=== PATIENT | female | born 1965 | race Hispanic/Latino ===

== ENCOUNTER 2018-01-15 16:45 | Emergency (ER) | payer BC ==
[2018-01-15 16:53] VITALS: BP 220/103
[2018-01-15] MEDS ORDERED: MORPHINE IM ONE (17:53)
[2018-01-15] MEDS ORDERED: SOLU-Medrol IM ONE (17:53)
--- NOTE | 2018-01-15 18:33 | Emergency Department Report ---
ED Upper Extremity Inj HPI - General Chief Complaint: Extremity Injury, Upper Stated Complaint: HAND PAIN Time Seen by Provider: 01/15/18 17:22 Source: patient Mode of arrival: Ambulatory Limitations: No Limitations - History of Present Illness Initial Comments: 52-year-old female with complaint of bilateral hand and forearm pain 1 week patient reports associated burning and numbness in bilateral hands. Reports mild swelling. She denies neck pain. Patient denies injury. States has had this problem in the past and was worked up for dermatomyositis. However workup was incomplete. Patient never got definitive diagnosis obtained. MD Complaint: Injury to:: left, right, forearm, wrist, hand -: week(s) (1) Improves With: none Worsens With: none Associated Symptoms: numbness. denies: neck pain Treatments Prior to Arrival: NSAIDS - Related Data Previous Rx's Medication Instructions Recorded Last Taken Type methylPREDNISolone [Medrol Dose 4 mg PO QDAY 5 Days #21 pack 01/15/18 Unknown Rx Ishan] traMADol [Ultram] 50 mg PO Q6HR PRN #20 tablet 01/15/18 Unknown Rx Allergies Allergy/AdvReac Type Severity Reaction Status Date / Time acetaminophen [From Ofirmev] Allergy Anaphylaxis Verified 01/15/18 16:55 etodolac Allergy Anaphylaxis Verified 01/15/18 16:55 hydromorphone [From Dilaudid] Allergy Anaphylaxis Verified 01/15/18 16:55 levofloxacin [From Levaquin] Allergy Anaphylaxis Verified 01/15/18 16:55 ED Review of Systems ROS: Stated complaint: HAND PAIN Other details as noted in HPI Comment: All other systems reviewed and negative Constitutional: denies: fever Musculoskeletal: arthralgia, myalgia. denies: other (neck pain) Neurological: paresthesias ED Past Medical Hx - Past Medical History Previous Medical History?: Yes Hx Hypertension: Yes Hx Diabetes: Yes - Surgical History Past Surgical History?: Yes Additional Surgical History: Aortic Aneursym repair, hysterectomy - Social History Smoking Status: Never Smoker - Medications Home Medications: Home Medications Medication Instructions Recorded Confirmed Last Taken Type methylPREDNISolone [Medrol Dose 4 mg PO QDAY 5 Days #21 pack 01/15/18 Unknown Rx Ishan] traMADol [Ultram] 50 mg PO Q6HR PRN #20 tablet 01/15/18 Unknown Rx ED Physical Exam - General Limitations: No Limitations General appearance: alert, other (appears uncomfortable, in obvious pain) - Head Head exam: Present: atraumatic, normocephalic - Eye Eye exam: Present: normal appearance - Neck Neck exam: Present: normal inspection, full ROM. Absent: tenderness - Respiratory Respiratory exam: Present: normal lung sounds bilaterally. Absent: respiratory distress - Cardiovascular Cardiovascular Exam: Present: regular rate, normal rhythm - GI/Abdominal GI/Abdominal exam: Present: soft. Absent: tenderness - Extremities Exam Extremities exam: Present: normal capillary refill, other (no obvious swelling to hands present; cap refill nml; hands are warm; strength in hands 5/5; hands, wrists and forearms tender to palpation bilaterally; ROM nml ) - Neurological Exam Neurological exam: Present: alert, oriented X3 - Psychiatric Psychiatric exam: Present: normal affect, normal mood - Skin Skin exam: Present: warm, dry, intact, normal color ED Course Vital Signs 01/15/18 16:49 Temperature 99.2 F Pulse Rate 72 Respiratory 16 Rate Blood Pressure 220/103 O2 Sat by Pulse 97 Oximetry ED Medical Decision Making - Medical Decision Making 52-year-old female with bilateral hand and wrist and forearm pain. No obvious changes to hands on exam. Tenderness present in bilateral hands or his forearms. Possible arthritis or neuropathy. Will treat with steroids and pain meds, will refer to [facility] [employer] [facility] - Differential Diagnosis arthritis, neuropathy, myositis, vasculitis Critical care attestation.: If time is entered above; I have spent that time in minutes in the direct care of this critically ill patient, excluding procedure time. ED Disposition Clinical Impression: Arthralgia, Neuropathy Disposition: - TO HOME OR SELFCARE Is pt being admited?: No Condition: Stable Instructions: Paresthesia (ED), Arthralgia (ED) Prescriptions: methylPREDNISolone [Medrol Dose Ishan] 4 mg PO QDAY 5 Days #21 pack traMADol [Ultram] 50 mg PO Q6HR PRN #20 tablet PRN Reason: Pain Referrals: PRIMARY MD JC [Primary Care Provider] - 3-5 Days KAT PADILLA MD [Staff Physician] - 3-5 Days JOSAFAT FINK MD [Referring] - 3-5 Days LUIS ANGEL RUBY MD [Referring] - 3-5 Days OVIDIO MENDOZA MD [Referring] - 3-5 Days [facility] [Provider Group] - 3-5 Days Time of Disposition: 18:41
== END 2018-01-15 18:47 | disposition home or self-care (01) ==
LOC: ED 16:45
DX: G62.9 Polyneuropathy, unspecified (principal); I10 Essential (primary) hypertension; E11.9 Type 2 diabetes mellitus without complications
CPT/HCPCS: 96372; 99282; J2270; J2930

== ENCOUNTER 2018-02-05 11:17 | Inpatient (IN) | payer BC ==
[2018-02-05] MEDS ORDERED: ASPIRIN PO ONE (11:35)
[2018-02-05] MEDS ORDERED: DUONEB *Not for PRN Use IH ONE (11:52)
--- NOTE | 2018-02-05 11:57 | Emergency Department Report ---
HPI - General Chief Complaint: Arrhythmia/Palpitations Time Seen by Provider: 02/05/18 11:42 - HPI HPI: 52-year-old female, who is an ICU nurse here at [employer], presents to the emergency department with the complaint of a 5 day history of some shortness of breath, productive cough. Over the past hour or so she has also become slightly diaphoretic and began having some palpitations. She says that the cough is productive with some green sputum. She has a past medical history of diabetes, hypertension, thoracic aortic aneurysm repair, hysterectomy , cholecystectomy. She has tried some NyQuil for symptoms without much relief. She denies any tobacco or illicit drug use or abuse. No recent travel or sick contacts at home. Her primary care physician is a Dr. Raymond in [place]. She denies any chest pain but says that occasionally she will feel some tightness or pressure. ED Past Medical Hx - Past Medical History Previous Medical History?: Yes Hx Hypertension: Yes Hx Diabetes: Yes - Surgical History Additional Surgical History: Aortic Aneursym repair, hysterectomy - Social History Smoking Status: Never Smoker Substance Use Type: None - Medications Home Medications: Home Medications Medication Instructions Recorded Confirmed Last Taken Type Aspirin [Adult Aspirin] 81 mg PO DAILY 02/05/18 02/05/18 02/05/18 History Carvedilol [Coreg] 12.5 mg PO BID 02/05/18 02/05/18 02/05/18 History FLUoxetine HCL [PROzac] 40 mg PO QPM 02/05/18 02/05/18 02/04/18 History Furosemide [Lasix TAB] 40 mg PO QDAY 02/05/18 02/05/18 02/05/18 History Losartan Potassium [Cozaar] 25 mg PO BID 02/05/18 02/05/18 02/05/18 History Metformin HCl [Glucophage] 1,000 mg PO QPM 02/05/18 02/05/18 Unknown History Nitroglycerin 0.6 mg SL PRN PRN 02/05/18 02/05/18 Unknown History Pantoprazole Sodium 40 mg PO BID 02/05/18 02/05/18 02/05/18 History Potassium Chloride [K-Dur] 20 meq PO QDAY 02/05/18 02/05/18 02/05/18 History clonazePAM [Clonazepam] 0.5 mg PO BID PRN 02/05/18 02/05/18 Unknown History tiZANidine [Zanaflex] 4 mg PO TID PRN 02/05/18 02/05/18 Unknown History ED Review of Systems ROS: Stated complaint: SOB PALPITATIONS/COUGHING UP MUCOUS Other details as noted in HPI Comment: All other systems reviewed and negative Constitutional: diaphoresis. denies: fever Eyes: denies: eye pain, eye discharge, vision change ENT: denies: ear pain, throat pain Respiratory: cough, shortness of breath Cardiovascular: palpitations. denies: edema Gastrointestinal: denies: abdominal pain, vomiting Genitourinary: denies: urgency, dysuria, discharge Musculoskeletal: denies: back pain, joint swelling, arthralgia Skin: denies: rash, lesions Neurological: denies: headache, numbness Physical Exam - Physical Exam Vital Signs: Vital Signs 02/05/18 11:32 Temperature 99 F Pulse Rate 105 H Respiratory 20 Rate Blood Pressure 190/103 O2 Sat by Pulse 99 Oximetry Physical Exam: GENERAL: The patient is well-developed well-nourished. HENT: Normocephalic. Atraumatic. Patient has moist mucous membranes. EYES: Extraocular motions are intact. Pupils equal reactive to light bilaterally. NECK: Supple. Trachea is midline. CHEST/LUNGS: Clear to auscultation. There is no respiratory distress noted. HEART/CARDIOVASCULAR: Regular. There is mild tachycardia. There is no murmur. ABDOMEN: Abdomen is soft, nontender. Patient has normal bowel sounds. There is no abdominal distention. SKIN: Skin is warm and dry. NEURO: The patient is awake, alert, and oriented. The patient is cooperative. The patient has no focal neurologic deficits. The patient has normal speech. MUSCULOSKELETAL: There is no tenderness or deformity. There is no limitation range of motion. There is no evidence of acute injury. ED Course Vital Signs 02/05/18 11:32 Temperature 99 F Pulse Rate 105 H Respiratory 20 Rate Blood Pressure 190/103 O2 Sat by Pulse 99 Oximetry ED Medical Decision Making - Lab Data Result diagrams: 02/05/18 11:45 02/05/18 11:45 - EKG Data -: EKG Interpreted by Pr EKG shows normal: sinus rhythm, axis, intervals (prolonged QT and QTC intervals) , QRS complexes, ST-T waves (some flattening of the T waves and/or T wave inversions throughout the lateral and inferior leads) - EKG Data When compared to previous EKG there are: previous EKG unavailable Interpretation: other (sinus rhythm, normal axis, prolonged QT and QTC intervals , some flattening or inversion of T waves throughout most leads.) - Radiology Data Radiology results: report reviewed, image reviewed interpreted by me: Chest x-ray does not show any acute process. There are no pleural effusions, obvious pneumonia and there is no pneumothorax. EXAM: CT ANGIO CHEST HISTORY: SOB, elevated dimer TECHNIQUE: CT examination of the chest with IV contrast CT angiographic 2D and thick slab 3D image post-processing PRIORS: None. FINDINGS: Sternotomy cerclage wires are present. Normal cardiac size without pericardial effusion. Intact normal caliber thoracic aorta. No hilar mass or mediastinal adenopathy. The visualized pulmonary arteries are diffusely patent bilaterally. There is no filling defect to suggest PE. Nonspecific diffusely decreased density of liver parenchyma may reflect fatty infiltration. No focal lesion in the visualized portion of the liver. Degenerative change in the regional skeleton. No evidence of acute fracture. No pneumothorax, pleural effusion, or focal pulmonary consolidation. No evidence of lung mass or pulmonary nodule. IMPRESSION: Suggestion of hepatic steatosis No CT evidence of PE or definite acute cardiopulmonary disease Transcribed By: BAL Dictated By: MARCELA RANDLE MD Electronically Authenticated By: MARCELA RANDLE MD Signed Date/Time: 02/05/18 6539 - Medical Decision Making Patient presents with a five-day history of shortness of breath and cough any more recent history of palpitations and some chest discomfort. EKG did not show any ST elevation PA. Chest x-ray did not show any acute processes. Labs are mostly unremarkable except for a slightly elevated and equivocal d-dimer. CT angiography of the chest did not show any PE or dissection. Patient was given some pain medication but still continues to have some chest discomfort. She is not had a full cardiac workup in some time and has a few risk factors for coronary artery disease. She'll be admitted to the hospital for further evaluation and treatment and was accepted for admission by the hospitalist, Dr. Cortez. - Differential Diagnosis PA, PE, costochondritis, pneumonia, bronchitis Critical Care Time: No Critical care attestation.: If time is entered above; I have spent that time in minutes in the direct care of this critically ill patient, excluding procedure time. ED Disposition Clinical Impression: Acute chest pain, Palpitations HTN (hypertension) Qualifiers: Hypertension type: essential hypertension Qualified Code(s): I10 - Essential ( primary) hypertension Dyspnea Qualifiers: Dyspnea type: shortness of breath Qualified Code(s): R06.02 - Shortness of breath; R06.00 - Dyspnea, unspecified; R06.01 - Orthopnea Disposition: 09 OP ADMIT IP TO THIS HOSP Is pt being admited?: Yes Condition: Stable Time of Disposition: 19:47
[2018-02-05 12:08] LABS: Basophils # (Auto) 0.1 K/mm3 (0.0-0.1); Basophils % (Auto) 1.2 % (0.0-1.8); Eosinophils # (Auto) 0.1 K/mm3 (0.0-0.4); Eosinophils % (Auto) 1.8 % (0.0-4.3); Hematocrit 43.2 % (30.3-42.9); Hemoglobin 14.9 gm/dl (10.1-14.3); Lymphocytes % (Auto) 37.6 % (13.4-35.0); Mean Corpuscular HGB Conc 35 % (30-34); Mean Corpuscular Hemoglobin 31 pg (28-32); Mean Corpuscular Volume 91 fl (79-97); Monocytes # (Auto) 0.5 K/mm3 (0.0-0.8); Monocytes % (Auto) 5.6 % (0.0-7.3); Platelet Count 239 K/mm3 (140-440); Red Blood Count 4.77 M/mm3 (3.65-5.03); Red Cell Distribution Width 13.4 % (13.2-15.2)
--- NOTE | 2018-02-05 12:24 | XRay Report ---
AP CHEST: HISTORY: Shortness of breath Previous cardiac surgery changes are noted. AP view of the chest demonstrates a normal mediastinal and cardiac contour with clear lungs and normal bony and soft tissue structures. IMPRESSION: No acute cardiopulmonary process
[2018-02-05] MEDS ORDERED: MORPHINE IV ONE ×3 (12:26→19:17)
[2018-02-05] MEDS ORDERED: ZOFRAN ONE (12:39)
[2018-02-05 12:43] LABS: BUN/Creatinine Ratio 18; Blood Urea Nitrogen 16 mg/dL (7-17); Calcium 9.4 mg/dL (8.4-10.2); Hemolysis Index 12
[2018-02-05] MEDS ORDERED: ZOFRAN IV ONE (12:50)
[2018-02-05] MEDS ORDERED: NACL 0.9% 50 ML ONE (12:51)
--- NOTE | 2018-02-05 13:46 | Cat Scan Report ---
FINAL REPORT EXAM: CT ANGIO CHEST HISTORY: SOB, elevated dimer TECHNIQUE: CT examination of the chest with IV contrast CT angiographic 2D and thick slab 3D image post-processing PRIORS: None. FINDINGS: Sternotomy cerclage wires are present. Normal cardiac size without pericardial effusion. Intact normal caliber thoracic aorta. No hilar mass or mediastinal adenopathy. The visualized pulmonary arteries are diffusely patent bilaterally. There is no filling defect to suggest PE. Nonspecific diffusely decreased density of liver parenchyma may reflect fatty infiltration. No focal lesion in the visualized portion of the liver. Degenerative change in the regional skeleton. No evidence of acute fracture. No pneumothorax, pleural effusion, or focal pulmonary consolidation. No evidence of lung mass or pulmonary nodule. IMPRESSION: Suggestion of hepatic steatosis No CT evidence of PE or definite acute cardiopulmonary disease
--- NOTE | 2018-02-05 13:55 | History and Physical Report ---
History of Present Illness Chief complaint: My chest hurts History of present illness: 52 YO Female with HTN, DM, Anxiety presents to ED for evaluation. Pt states that she has experienced shortness of breath, productive cough for the past 5 days. Pt states that she developed pain in her chest while at work today. Pt states that pain is 4/10, intermittent, nonradiating, not worsened with exertion or relieved with rest. Pain is associated with palpitations, diaphoresis, and productive cough with green sputum. Pt denies trauma, BRBPR, recent ill contacts, prolonged immobility, unilateral leg swelling, calf pain, individual/family history of DVT/PE, hemoptysis, or recent ill contacts. Pt seen and evaluated in ED and found to have symptoms consistent with ACS as well as Diastolic CHF. Pt admitted to telemetry. Cardiology team consulted in ED. Past History Past Medical History: diabetes, hypertension, other (Anxiety) Past Surgical History: abd. aortic aneurysm repair, hysterectomy, Other Social history: single, lives with family. denies: smoking, alcohol abuse, prescription drug abuse Family history: diabetes, hypertension Medications and Allergies Allergies Allergy/AdvReac Type Severity Reaction Status Date / Time acetaminophen [From Ofirmev] Allergy Anaphylaxis Verified 01/15/18 16:55 hydromorphone [From Dilaudid] Allergy Anaphylaxis Verified 01/15/18 16:55 ketorolac Allergy Unknown Verified 02/05/18 12:27 levofloxacin [From Levaquin] Allergy Anaphylaxis Verified 01/15/18 16:55 Home Medications Medication Instructions Recorded Confirmed Last Taken Type Aspirin [Adult Aspirin] 81 mg PO DAILY 02/05/18 02/05/18 02/05/18 History Carvedilol [Coreg] 12.5 mg PO BID 02/05/18 02/05/18 02/05/18 History FLUoxetine HCL [PROzac] 40 mg PO QPM 02/05/18 02/05/18 02/04/18 History Furosemide [Lasix TAB] 40 mg PO QDAY 02/05/18 02/05/18 02/05/18 History Losartan Potassium [Cozaar] 25 mg PO BID 02/05/18 02/05/18 02/05/18 History Metformin HCl [Glucophage] 1,000 mg PO QPM 02/05/18 02/05/18 Unknown History Nitroglycerin 0.6 mg SL PRN PRN 02/05/18 02/05/18 Unknown History Pantoprazole Sodium 40 mg PO BID 02/05/18 02/05/18 02/05/18 History Potassium Chloride [K-Dur] 20 meq PO QDAY 02/05/18 02/05/18 02/05/18 History clonazePAM [Clonazepam] 0.5 mg PO BID PRN 02/05/18 02/05/18 Unknown History tiZANidine [Zanaflex] 4 mg PO TID PRN 02/05/18 02/05/18 Unknown History Review of Systems Constitutional: no weight loss, no weight gain, no fever, no chills Ears, nose, mouth and throat: no ear pain, no ear discharge, no tinnitis, no decreased hearing, no nose pain, no nasal congestion Breasts: no change in shape, no swelling, no mass Cardiovascular: chest pain, palpitations, no orthopnea, no syncope, no lightheadedness, no shortness of breath, no dyspnea on exertion, no paroxysmal nocturnal dyspnea, no claudication, no leg edema Respiratory: cough with sputum, no cough, no hemoptysis, no dyspnea on exertion , no congestion Gastrointestinal: no nausea, no vomiting, no diarrhea, no constipation, no change in bowel habits Genitourinary Female: no pelvic pain, no flank pain, no menorrhagia, no dysuria Rectal: no pain, no incontinence, no bleeding, no itching, no hemorrhoids, no discharge Musculoskeletal: no neck stiffness, no neck pain, no shooting arm pain, no arm numbness/tingling, no hot joints, no morning stiffness Integumentary: no rash, no pruritis, no redness, no sores, no wounds Neurological: no paralysis, no weakness, no parathesias, no numbness, no tingling, no seizures, no syncope, no tremors Psychiatric: no anxiety, no memory loss, no change in sleep habits, no sleep disturbances, no insomnia, no hypersomnia, no change in appetite Endocrine: no cold intolerance, no heat intolerance, no polyphagia, no excessive thirst, no polyuria, no nocturia, no excessive sweating Hematologic/Lymphatic: no easy bruising, no easy bleeding, no lymphadenopathy, no lymphedema Allergic/Immunologic: no urticaria, no allergic rhinitis, no wheezing, no persistent infections, no anaphylaxis, no angioedema Exam - Constitutional Vitals: Temp Pulse Resp BP Pulse Ox 99 F 105 H 18 190/103 99 02/05/18 11:32 02/05/18 11:32 02/05/18 12:48 02/05/18 11:32 02/05/18 11:32 General appearance: Present: mild distress - EENT Eyes: Present: PERRL ENT: hearing intact, clear oral mucosa - Neck Neck: Present: supple, normal ROM - Respiratory Respiratory effort: normal Respiratory: bilateral: CTA - Cardiovascular Heart Sounds: Present: S1 & S2. Absent: rub, click - Extremities Extremities: pulses symmetrical, No edema Peripheral Pulses: within normal limits - Abdominal General gastrointestinal: Present: soft, non-tender, non-distended, normal bowel sounds Female genitourinary: Present: normal - Integumentary Integumentary: Present: clear, warm, dry - Musculoskeletal Musculoskeletal: gait normal, strength equal bilaterally - Psychiatric Psychiatric: appropriate mood/affect, intact judgment & insight - Neurologic Neurologic: CNII-XII intact, moves all extremities Results - Labs CBC & Chem 7: 02/05/18 11:45 02/05/18 11:45 Labs: Abnormal lab results 02/05/18 02/05/18 02/05/18 Range/Units 11:45 11:45 11:56 Hgb 14.9 H (10.1-14.3) gm/dl Hct 43.2 H (30.3-42.9) % MCHC 35 H (30-34) % Lymph % (Auto) 37.6 H (13.4-35.0) % D-Dimer 379.93 H (0-234) ng/mlDDU Glucose 215 H (65-100) mg/dL Assessment and Plan - Patient Problems (1) ACS (acute coronary syndrome) Current Visit: Yes Status: Acute Plan to address problem: Admit to telemetry: Serial cardiac enzymes, EKG, telemetry, cardiology consulted in ED, stress test, morphine, supplemental oxygen, nitro, aspirin, d dimer (2) Diastolic CHF Current Visit: Yes Status: Acute Qualifiers: Heart failure chronicity: acute Qualified Code(s): I50.31 - Acute diastolic (congestive) heart failure Plan to address problem: Admit to telemetry, Echo, cardiology consulted in ED, BNP, chest x ray, CTA chest, strict I/O, monitor uop q shift, daily weight. (3) HTN (hypertension) Current Visit: Yes Status: Acute Qualifiers: Hypertension type: essential hypertension Qualified Code(s): I10 - Essential (primary) hypertension Plan to address problem: monitor bp q shift. (4) Diabetes Current Visit: Yes Status: Acute Plan to address problem: ADA diet, insulin, accu check (5) DVT prophylaxis Current Visit: Yes Status: Acute Plan to address problem: SCD to BLE while in bed.
[2018-02-05] MEDS ORDERED: REGLAN IV ONE (14:05)
[2018-02-05] MEDS ORDERED: ZOFRAN IV PRN (14:08)
[2018-02-05] MEDS ORDERED: TYLENOL PO PRN (14:08)
[2018-02-05] MEDS ORDERED: NITROGLYCERIN 0.6 MG SL PRN (14:11)
[2018-02-05] MEDS ORDERED: D50W (25GM) Syringe IV PRN (14:12)
[2018-02-05] MEDS ORDERED: SODIUM CHLORIDE FLUSH SYRINGE 10 ML IV PRN ×2 (14:55→15:00)
[2018-02-05 14:59] LABS: Chol/HDL Ratio 5.34 %; HDL Cholesterol 38 mg/dL (40-59); LDL Cholesterol,Direct TNR mg/dL (50-130)
[2018-02-05] MEDS ORDERED: ZANAFLEX PO PRN (15:00)
[2018-02-05] MEDS ORDERED: NITROSTAT SL PRN (15:00)
--- NOTE | 2018-02-05 15:24 | Consultation ---
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 In addition, while working today, patient reports chest pain, palpitations and diaphoresis. Patient is also mildly febrile. Chest x-ray reports no acute cardiopulmonary process. CT scan of the chest reports no evidence of pulmonary embolism. Cardiac enzymes are negative thus far. Her 12 lead EKG shows sinus rhythm with a prolonged QT interval. A cardiac consultation was requested for chest pain evaluation. Patient gives a history of ascending aortic aneurysm repair at [place] October of 2012. Patient also reports a known bicuspid aortic valve that did not require surgery at the time of her AAA repair. There is no history of coronary artery disease. She has not had any recent cardiac workup. Co-morbidities includes hypertension and diabetes. Medications and Allergies Allergies Allergy/AdvReac Type Severity Reaction Status Date / Time acetaminophen [From Ofirmev] Allergy Anaphylaxis Verified 01/15/18 16:55 hydromorphone [From Dilaudid] Allergy Anaphylaxis Verified 01/15/18 16:55 ketorolac Allergy Unknown Verified 02/05/18 12:27 levofloxacin [From Levaquin] Allergy Anaphylaxis Verified 01/15/18 16:55 Home Medications Medication Instructions Recorded Confirmed Last Taken Type Aspirin [Adult Aspirin] 81 mg PO DAILY 02/05/18 02/05/18 02/05/18 History Carvedilol [Coreg] 12.5 mg PO BID 02/05/18 02/05/18 02/05/18 History FLUoxetine HCL [PROzac] 40 mg PO QPM 02/05/18 02/05/18 02/04/18 History Furosemide [Lasix TAB] 40 mg PO QDAY 02/05/18 02/05/18 02/05/18 History Losartan Potassium [Cozaar] 25 mg PO BID 02/05/18 02/05/18 02/05/18 History Metformin HCl [Glucophage] 1,000 mg PO QPM 02/05/18 02/05/18 Unknown History Nitroglycerin 0.6 mg SL PRN PRN 02/05/18 02/05/18 Unknown History Pantoprazole Sodium 40 mg PO BID 02/05/18 02/05/18 02/05/18 History Potassium Chloride [K-Dur] 20 meq PO QDAY 02/05/18 02/05/18 02/05/18 History clonazePAM [Clonazepam] 0.5 mg PO BID PRN 02/05/18 02/05/18 Unknown History tiZANidine [Zanaflex] 4 mg PO TID PRN 02/05/18 02/05/18 Unknown History Active Meds: Active Medications Acetaminophen (Tylenol) 650 mg PO Q4H PRN PRN Reason: Pain MILD(1-3)/Fever >100.5/PHILLIPS Aspirin (Halfprin Ec) 81 mg PO DAILY RYAN Carvedilol (Coreg) 12.5 mg PO BID RYAN Dextrose (D50w (25gm) Syringe) 50 ml IV PRN PRN PRN Reason: Hypoglycemia Fluoxetine HCl (Prozac) 40 mg PO QPM RYAN Furosemide (Lasix) 40 mg PO QDAY RYAN Insulin Human Lispro (Humalog) 0 unit SUB-Q ACHS RYAN; Protocol Lorazepam (Ativan) 1 mg IV Q6H PRN PRN Reason: Anxiety Losartan Potassium (Cozaar) 25 mg PO BID [facility] Nitroglycerin (Nitrostat) 0.6 mg SL PRN PRN PRN Reason: Chest Pain Ondansetron HCl (Zofran) 4 mg IV Q8H PRN PRN Reason: Nausea And Vomiting Pantoprazole Sodium (Protonix) 40 mg PO BID [facility] Potassium Chloride (K-Dur) 20 meq PO QDAY [facility] Sodium Chloride (Sodium Chloride Flush Syringe 10 Ml) 10 ml IV BID [facility] Sodium Chloride (Sodium Chloride Flush Syringe 10 Ml) 10 ml IV PRN PRN PRN Reason: LINE FLUSH Sodium Chloride (Sodium Chloride Flush Syringe 10 Ml) 10 ml IV PRN PRN PRN Reason: LINE FLUSH Tizanidine HCl (Zanaflex) 4 mg PO TID PRN PRN Reason: Spasms Physical Examination Vital Signs Temp Pulse Resp BP Pulse Ox 99 F 105 H 20 190/103 99 02/05/18 11:32 02/05/18 11:32 02/05/18 11:32 02/05/18 11:32 02/05/18 11:32 General appearance: no acute distress HEENT: Positive: PERRL Cardiac: Positive: Reg Rate and Rhythm Lungs: Positive: Decreased Breath Sounds Neuro: Positive: Grossly Intact Extremities: Absent: edema Results 02/05/18 11:45 02/05/18 11:45 Lipids 02/05/18 Range/Units 14:23 Triglycerides 518 H (2-149) mg/dL Cholesterol 203 H (50-199) mg/dL HDL Cholesterol 38 L (40-59) mg/dL Cholesterol/HDL Ratio 5.34 % CBC 02/05/18 Range/Units 11:45 WBC 8.0 (4.5-11.0) K/mm3 RBC 4.77 (3.65-5.03) M/mm3 Hgb 14.9 H (10.1-14.3) gm/dl Hct 43.2 H (30.3-42.9) % Plt Count 239 (140-440) K/mm3 Lymph # 3.0 (1.2-5.4) K/mm3 [place] # 0.5 (0.0-0.8) K/mm3 Eos # 0.1 (0.0-0.4) K/mm3 Baso # 0.1 (0.0-0.1) K/mm3 Comprehensive Metabolic Panel 02/05/18 Range/Units 11:45 Sodium 138 (137-145) mmol/L Potassium 3.7 (3.6-5.0) mmol/L Chloride 98.0 (98-107) mmol/L Carbon Dioxide 24 (22-30) mmol/L BUN 16 (7-17) mg/dL Creatinine 0.9 (0.7-1.2) mg/dL Glucose 215 H (65-100) mg/dL Calcium 9.4 (8.4-10.2) mg/dL Assessment and Plan Upper respiratory infection Chest pain Hypertension Diabetes Hx of ascending aortic aneurysm repair at [place] October of 2012
[2018-02-05] MEDS: ATIVAN IV PRN ×2 (15:56→23:18)
[2018-02-05] MEDS ORDERED: ATIVAN ONE (15:57)
[2018-02-05] MEDS ORDERED: NON-FORMULARY (Fluoxetine Hcl [Prozac] 40 MG) PO SCH (18:00)
[2018-02-05] MEDS ORDERED: PROzac PO SCH (18:00)
[2018-02-05] MEDS: HumaLOG SUB-Q SCH ×2 (19:16→21:36)
[2018-02-05] MEDS: COZAAR PO SCH (21:33)
[2018-02-05] MEDS: COREG PO SCH (21:33)
[2018-02-05] MEDS: PROTONIX PO SCH (21:33)
[2018-02-05] MEDS: SODIUM CHLORIDE FLUSH SYRINGE 10 ML IV SCH (21:35)
[2018-02-05] MEDS ORDERED: PROVENTIL IH PRN (23:26)
[2018-02-06] MEDS: MORPHINE IV PRN ×2 (05:20→09:20)
[2018-02-06] MEDS: ATIVAN IV PRN (08:02)
[2018-02-06] MEDS: HumaLOG SUB-Q SCH ×2 (08:03→12:00)
[2018-02-06] MEDS ORDERED: NITROSTAT SL PRN (09:52)
[2018-02-06] MEDS ORDERED: K-DUR PO SCH (10:00)
[2018-02-06] MEDS ORDERED: LASIX PO SCH (10:00)
[2018-02-06] MEDS ORDERED: HALFPRIN EC PO SCH (10:00)
[2018-02-06] MEDS ORDERED: LEXISCAN IV ONE (11:14)
[2018-02-06] MEDS ORDERED: ZOFRAN ONE (11:32)
--- NOTE | 2018-02-06 11:50 | Progress Note ---
Assessment and Plan Atypical chest pain Normal coronaries by cath 06/2015 History of ascending aortic aneurysm repair 2012 No acute events on CTA chest Normal ascending aorta on echo (3.7 cm), elevated gradient across the descending thoracic aorta (44 mm Hg) (no baseline gradient measured postop) Bicuspid aortic valve Mild to moderate , MARIA ESTHER 1.47-1.6 cm2 Abnormal ECG Systemic Hypertension Type II DM Recommendations: Continue afterload reduction May go home if lexiscan is negative Follow-up with Dr Bassem Pemberton as outpatient Subjective Date of service: 02/06/18 Principal diagnosis: Chest Pain Interval history: Patient underwent a lexiscan stress test today - no complications Objective Vital Signs Temp Pulse Pulse Pulse Pulse Pulse Resp 02/06/18 07:13 98.4 F 66 16 02/06/18 05:06 98.7 F 70 18 02/06/18 05:01 98.7 F 96 H 18 02/06/18 04:00 59 L 02/06/18 00:51 98.8 F 64 17 02/06/18 00:29 67 02/06/18 00:20 68 02/05/18 22:00 02/05/18 21:33 84 02/05/18 20:08 99.2 F 84 17 02/05/18 20:00 84 02/05/18 19:07 79 02/05/18 18:15 96 H 96 H 96 H 21 02/05/18 12:48 18 Resp BP BP Pulse Ox 02/06/18 07:13 133/64 95 02/06/18 05:06 126/59 95 02/06/18 05:01 146/79 95 02/06/18 04:00 02/06/18 00:51 90/34 95 02/06/18 00:29 18 02/06/18 00:20 18 02/05/18 22:00 98 02/05/18 21:33 02/05/18 20:08 153/80 94 02/05/18 20:00 02/05/18 19:07 02/05/18 18:15 02/05/18 12:48 - Physical Examination HEENT: Positive: PERRL Neck: Positive: neck supple Cardiac: Positive: Reg Rate and Rhythm Lungs: Positive: Normal Exam Neuro: Positive: Grossly Intact Extremities: Absent: edema - Labs and Meds Lipids 02/05/18 Range/Units 14:23 Triglycerides 518 H (2-149) mg/dL Cholesterol 203 H (50-199) mg/dL HDL Cholesterol 38 L (40-59) mg/dL Cholesterol/HDL Ratio 5.34 % CBC 02/05/18 Range/Units 11:45 WBC 8.0 (4.5-11.0) K/mm3 RBC 4.77 (3.65-5.03) M/mm3 Hgb 14.9 H (10.1-14.3) gm/dl Hct 43.2 H (30.3-42.9) % Plt Count 239 (140-440) K/mm3 Lymph # 3.0 (1.2-5.4) K/mm3 [place] # 0.5 (0.0-0.8) K/mm3 Eos # 0.1 (0.0-0.4) K/mm3 Baso # 0.1 (0.0-0.1) K/mm3 Comprehensive Metabolic Panel 02/05/18 Range/Units 11:45 Sodium 138 (137-145) mmol/L Potassium 3.7 (3.6-5.0) mmol/L Chloride 98.0 (98-107) mmol/L Carbon Dioxide 24 (22-30) mmol/L BUN 16 (7-17) mg/dL Creatinine 0.9 (0.7-1.2) mg/dL Glucose 215 H (65-100) mg/dL Calcium 9.4 (8.4-10.2) mg/dL
--- NOTE | 2018-02-06 12:34 | Discharge Summary ---
Providers - Providers Date of Admission: 02/05/18 14:08 Attending physician: DAMIÁN SAMUELS MD 02/05/18 Consult to Cardiac Rehabilitation [CONS] Routine Reason For Exam: Phase I 02/05/18 14:08 Consult to Cardiology [CONS] Routine Consulting Provider: KARL MOTT Reason For Exam: acs Primary care physician: KEATON GREENE MD Hospitalization Condition: Stable Disposition: DC-30 STILL A PATIENT Exam - Constitutional Vitals: Temp Pulse Resp BP Pulse Ox 98.4 F 66 16 133/64 95 02/06/18 07:13 02/06/18 07:13 02/06/18 07:13 02/06/18 07:13 02/06/18 07:13 Plan Follow up with: KEATON GREENE MD [Primary Care Provider] - 7 Days
[2018-02-06] MEDS: PROTONIX PO SCH (13:27)
[2018-02-06] MEDS: COZAAR PO SCH (13:28)
[2018-02-06] MEDS: COREG PO SCH (13:28)
[2018-02-06] MEDS: SODIUM CHLORIDE FLUSH SYRINGE 10 ML IV SCH (13:28)
[2018-02-06 14:15] VITALS: BP 157/84
--- NOTE | 2018-02-07 01:47 | Treadmill Report ---
INDICATION: Chest pain. ORDERING PHYSICIAN: Rajani Connors MD FINDINGS: There is no scintigraphic evidence of myocardial ischemia. The left ventricle is normal in size and systolic function. Left ventricular ejection fraction is measured at 67%. Normal wall motion and wall thickening is noted on gated imaging. CONCLUSION: Normal perfusion scan. JOB# [id number]/NTS
== END 2018-02-06 14:25 | disposition home or self-care (01) | DRG 291 ==
LOC: ED 11:17 → 4A 14:08
PROVIDERS: ADMIT Internal Medicine; ATTEND Internal Medicine
DX: I11.0 Hypertensive heart disease with heart failure (principal); I50.31 Acute diastolic (congestive) heart failure; R07.89 Other chest pain; J06.9 Acute upper respiratory infection, unspecified; E11.9 Type 2 diabetes mellitus without complications; Z90.710 Acquired absence of both cervix and uterus; Z90.49 Acquired absence of other specified parts of digestive tract; Z79.82 Long term (current) use of aspirin; Z79.899 Other long term (current) drug therapy; Z79.84 Long term (current) use of oral hypoglycemic drugs; Z88.8 Allergy status to other drugs, medicaments and biological substances; R00.2 Palpitations; F41.9 Anxiety disorder, unspecified; Z83.3 Family history of diabetes mellitus; Z82.49 Family history of ischemic heart disease and other diseases of the circulatory system
CPT/HCPCS: 36415; 71045; 71275; 78452; 80048; 80061; 82962; 83880; 84443; 84484; 85025; 85379; 93005; 93010; 93017; 93306; 94640; 96374; 96375; 96376; A9502; J1815; J2060; J2270; J2405; J2765; Q9967